=== PATIENT | female | born 1980 | race Caucasian/White ===

== ENCOUNTER 2020-07-18 13:29 | Emergency (ER) | payer BC ==
[~2020-07-18] VITALS: Ht 162.6 cm; Wt 59.7 kg
[2020-07-18] MEDS ORDERED: NEOM10DR45 RIGHT EAR (14:04)
[2020-07-18] MEDS ORDERED: AMOX-422 PO (14:04)
[2020-07-18 14:19] VITALS: BP 155/88
== END 2020-07-18 14:20 | disposition home or self-care (01) ==
LOC: ER 13:30
DX: H66.91 Otitis media, unspecified, right ear (principal); Z79.899 Other long term (current) drug therapy
CPT/HCPCS: 99283

== ENCOUNTER 2024-04-04 16:46 | Emergency (ER) | payer BC ==
[~2024-04-04] VITALS: Ht 162.6 cm; Wt 57.4 kg
[2024-04-04] MEDS ORDERED: DOXY-457 PO (17:10)
[2024-04-04 17:21] VITALS: BP 128/76; PULSE 79; RESP 16; TEMP 98.6; O2SAT 98
== END 2024-04-04 17:22 | disposition home or self-care (01) ==
LOC: ER 16:47
DX: L02.214 Cutaneous abscess of groin (principal); L03.314 Cellulitis of groin; Z79.2 Long term (current) use of antibiotics
CPT/HCPCS: 99283